=== PATIENT | female | born 1980 | race Asian ===

== ENCOUNTER 2018-10-29 16:30 | Emergency (ER) | payer BC ==
[~2018-10-29] VITALS: Ht 162.6 cm; Wt 56.7 kg
[2018-10-29 16:43] VITALS: BP 104/69
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
[2018-10-29] MEDS ORDERED: Tetanus/Diptheria/Pertussis IM ONE (17:15)
[2018-10-29] MEDS ORDERED: Neosporin Oint Ud Pkt TOPIC ONE (17:15)
[2018-10-29] MEDS ORDERED: HYDROcodone/Acetamin 5/325 tab ORAL ONE (17:30)
--- NOTE | 2018-10-29 17:30 | NUR ---
ED Nurse Note: Cleansed left forearm abrasions with NS and patted dry, applied neosporin ointment. Covered with non stick dressing then wrappe dwith kerlix and secured with tape.
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
[2018-10-29] MEDS ORDERED: NORCO 5-325 TA1 EACH ORAL (17:56)
[2018-10-29] MEDS ORDERED: IBUPROFEN600 MG ORAL (17:56)
[2018-10-29] MEDS ORDERED: BACITRACIN-P28.35 GM TP (17:57)
[2018-10-29 18:40] VITALS: BP 115/78
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
--- NOTE | 2018-10-31 08:14 | Diagnostic Imaging Report ---
Indication: Pain Technique: Multiple views of the right wrist Comparison: None Findings: There is a mildly impacted, minimally displaced transverse fracture through the distal radius. There is minimal dorsal angulation. There is soft tissue swelling around the wrist. There is narrowing of the scapholunate interval and narrowing of the radiocarpal joint space. Linear lucency through the ulnar styloid may represent nondisplaced ulnar styloid fracture. Impression: 1. Transverse distal radial impaction fracture with resulting narrowing of the radiocarpal joint and scapholunate interval. 2. Possible nondisplaced ulnar styloid fracture.
== END 2018-10-29 18:40 | disposition home or self-care (01) ==
LOC: EMR 17:27
DX: S52.501A Unspecified fracture of the lower end of right radius, initial encounter for closed fracture (principal); S50.812A Abrasion of left forearm, initial encounter; V43.52XA Car driver injured in collision with other type car in traffic accident, initial encounter; Y92.410 Unspecified street and highway as the place of occurrence of the external cause; Z23 Encounter for immunization
CPT/HCPCS: 29125; 90471; 90715; 99283